=== PATIENT | female | born 1990 | race Caucasian/White ===

== ENCOUNTER 2019-02-16 05:22 | Inpatient (IN) | payer MEDICAID ==
[2019-02-16] MEDS: LACTATED RINGER'S 1,000 ML IV ×4 (05:45→23:26)
[2019-02-16 05:48] LABS: ADD MAN DIFF? NO
[2019-02-16 05:59] LABS: BASOPHILS % 0.4 % (0.0-2.0); EOSINOPHILS # 0.1 10^3/ul (0.0-0.5); HEMATOCRIT 37.6 % (37.0-47.0); HEMOGLOBIN 12.5 g/dl (12.0-16.0); LYMPHOCYTES # 1.9 10^3/ul (0.8-2.9); LYMPHOCYTES % 23.5 % (15.0-51.0); MEAN CORPUSCULAR HEMOGLOBIN 30.4 pg (29.0-33.0); MEAN CORPUSCULAR HGB CONC 33.2 g/dl (32.0-37.0); MEAN CORPUSCULAR VOLUME 91.5 fl (82.0-101.0); MEAN PLATELET VOLUME 10.6 fl (7.4-10.4); MONOCYTE # 0.7 10^3/ul (0.3-0.9); MONOCYTES % 9.3 % (0.0-11.0); NEUTROPHIL # 5.2 10^3/ul (1.6-7.5); NEUTROPHILS % 64.5 % (39.0-77.0); PLATELET COUNT 258 10^3/UL (140-415); RED BLOOD COUNT 4.11 10^6/ul (4.20-5.40); RED CELL DISTRIBUTION WIDTH 12.7 % (11.5-14.5)
[2019-02-16] MEDS ORDERED: CARBOPROST 250 MCG INJ IM (06:00)
[2019-02-16] MEDS ORDERED: METHYLERGONOVINE 0.2 MG INJ IM (06:00)
[2019-02-16] MEDS ORDERED: MISOPROSTOL 200 MCG TAB PR ×2 (06:00→08:00)
[2019-02-16] MEDS ORDERED: OXYTOCIN 30 UNITS/LR 500 ML IV (06:00)
[2019-02-16 06:20] LABS: INR 0.84; PROTIME 11.6 Sec (11.9-14.9); PT RATIO 0.9
[2019-02-16 06:21] LABS: PARTIAL THROMBOPLASTIN TIME 27.5 Sec (23.0-35.0)
[2019-02-16 07:23] LABS: HEPATITIS B SURFACE ANTIGEN NEGATIVE (NEGATIVE)
[2019-02-16] MEDS ORDERED: morphine SULFATE/PF (10 MG/10 ML) INJ (07:39)
[2019-02-16] MEDS ORDERED: ONDANSETRON 4 MG INJ (07:39)
[2019-02-16] MEDS ORDERED: OXYTOCIN 10 UNIT INJ ×2 (07:39→08:15)
[2019-02-16] MEDS ORDERED: NA PHOSPHATE/BIPHOS 133 ML ENEMA PR (08:00)
[2019-02-16] MEDS ORDERED: PHENYLephrine 10 MG INJ (08:10)
[2019-02-16] MEDS ORDERED: ONDANSETRON 4 MG INJ IV (09:00)
[2019-02-16] MEDS ORDERED: DIPHENHYDRAMINE 50 MG INJ IV (09:00)
[2019-02-16] MEDS: SENNA/DOCUSATE NA (8.6MG/50MG) TAB PO ×2 (09:00→21:00)
[2019-02-16] MEDS ORDERED: KETOROLAC 30 MG INJ IV (09:00)
[2019-02-16] MEDS ORDERED: NALOXONE (0.4 MG/ML) INJ IV (09:00)
[2019-02-16] MEDS: CEFAZOLIN 2 GM/50 ML (PMX) 50 ML IVPB (09:32)
[2019-02-16] MEDS: OXYTOCIN 30 UNITS/LR 500 ML IV ×3 (10:32→14:09)
[2019-02-16 15:11] LABS: RAPID PLASMA REAGIN NONREACTIVE (NR)
[2019-02-17] MEDS: morphine 2 MG INJ IV (00:02)
[2019-02-17 05:09] LABS: ADD MAN DIFF? NO
[2019-02-17 05:11] LABS: BASOPHILS % 0.1 % (0.0-2.0); EOSINOPHILS % 0.3 % (0.0-7.0); HEMATOCRIT 34.2 % (37.0-47.0); HEMOGLOBIN 11.3 g/dl (12.0-16.0); LYMPHOCYTES # 1.3 10^3/ul (0.8-2.9); LYMPHOCYTES % 13.1 % (15.0-51.0); MEAN CORPUSCULAR HEMOGLOBIN 30.5 pg (29.0-33.0); MEAN CORPUSCULAR VOLUME 92.2 fl (82.0-101.0); MEAN PLATELET VOLUME 10.9 fl (7.4-10.4); MONOCYTES % 10.1 % (0.0-11.0); NEUTROPHIL # 7.3 10^3/ul (1.6-7.5); NEUTROPHILS % 75.7 % (39.0-77.0); PLATELET COUNT 217 10^3/UL (140-415); RED BLOOD COUNT 3.71 10^6/ul (4.20-5.40); RED CELL DISTRIBUTION WIDTH 12.7 % (11.5-14.5)
[2019-02-17 05:11] LABS: WHITE BLOOD COUNT 9.6 10^3/ul (4.8-10.8)
[2019-02-17] MEDS: LACTATED RINGER'S 1,000 ML IV (05:33)
[2019-02-17] MEDS: SENNA/DOCUSATE NA (8.6MG/50MG) TAB PO (09:05)
[2019-02-17] MEDS: OXYCODONE/ACETAMINOPHEN (5/325) TAB PO (09:17)
[2019-02-17] MEDS: IBUPROFEN 600 MG TAB PO ×2 (12:09→18:41)
[2019-02-17] MEDS: LANOLIN HPA 1 PKT TOP (18:41)
[2019-02-18] MEDS: IBUPROFEN 600 MG TAB PO ×4 (05:41→18:09)
[2019-02-18] MEDS: SENNA/DOCUSATE NA (8.6MG/50MG) TAB PO ×2 (08:39)
[2019-02-18] MEDS: OXYCODONE/ACETAMINOPHEN (5/325) TAB PO (13:09)
[2019-02-18] MEDS: DIPHTH/TET/ACEL PERTUSS (ADULT) 0.5 ML VIAL IM* (14:03)
[2019-02-19] MEDS ORDERED: MEASLES,MUMPS,RUBELLA VACCINE INJ SC* (09:00)
[2019-02-19] MEDS ORDERED: DIPHTH/TET/ACEL PERTUSS (ADULT) 0.5 ML VIAL IM* (09:00)
== END 2019-02-18 21:20 | disposition home or self-care (01) | DRG 785 ==
LOC: L-D 05:22 → MS1 11:45
PROVIDERS: Specialist
PROC: 10D00Z1 Extraction of Products of Conception, Low, Open Approach (ICD-10-PCS; principal; 2019-02-16 07:30)
PROC: 0UT70ZZ Resection of Bilateral Fallopian Tubes, Open Approach (ICD-10-PCS; 2019-02-16 07:30)
DX: O65.5 Obstructed labor due to abnormality of maternal pelvic organs (principal); O34.211 Maternal care for low transverse scar from previous cesarean delivery; Z3A.39 39 weeks gestation of pregnancy; Z37.0 Single live birth; Z30.2 Encounter for sterilization
CPT/HCPCS: 85025; 85610; 85730; 86592; 86850; 86900; 86901; 87340; 88302; 90715; 99464